=== PATIENT | male | born 1970 | race Caucasian/White ===

== ENCOUNTER 2022-11-30 13:38 | Emergency (ER) | payer OTHER ==
[~2022-11-30] VITALS: Ht 182.9 cm; Wt 62.6 kg
[2022-11-30] MEDS ORDERED: ADVAIR HFA 230-12 GM INH (13:52)
[2022-11-30] MEDS ORDERED: ADVIL200 MG PO (13:52)
[2022-11-30] MEDS ORDERED: VITAMIN D250 MC1 PO (13:53)
[2022-11-30] MEDS ORDERED: VITAMIN C100 MG PO (13:53)
--- NOTE | 2022-11-30 19:57 | EKG ---
[facility] [address] [facility] [place] [address] Signed Sinus tachycardia Otherwise normal ECG No previous ECGs available Confirmed by Deanna Batista MD () on 11/30/2022 7:57:07 PM Electronically Signed By: DEANNA BATISTA MD 11/30/221956 PATIENT NAME: JEAN PIERREYAMINI Linda Electrocardiogram DATE OF : 74 PHYSICIAN: DEANNA BATISTA MD REPORT #: [id number] REPORT IS CONFIDENTIAL AND NOT TO BE RELEASED WITHOUT AUTHORIZATION
--- NOTE | 2022-11-30 21:00 | OR ---
[facility] [address] [place], [place] [address] Signed DATE OF OPERATION: 11/30/2022 SURGEON: Jerson Martinez MD PREOPERATIVE DIAGNOSES: 1. Bilateral pneumothoraces. 2. Chronic obstructive pulmonary disease. 3. Pneumonia. POSTOPERATIVE DIAGNOSES: 1. Bilateral pneumothoraces. 2. Chronic obstructive pulmonary disease. 3. Pneumonia. PROCEDURE: Placement bilateral 28-[place]er chest tubes. FINDINGS: Roge had improvement of both pneumothoraces with ongoing moderate air leaks with good respiratory excursion. INDICATIONS: Roge is a 52-year-old gentleman, whose dad happened to be a general surgeon. His dad has from [facility]. His mom is a retired nurse. His sister happens to be an urologist here in our community. 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 He smoked for about 10 years a pack a day. He quit when he was 32. 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 Unfortunately, he developed COPD and has gotten progressively worse. He is up to 3 L nasal cannula 04/02. He can walk about 50 feet on a good day. He has to sleep prone with his arms and elbows underneath his chest. His mom and sister went down to [place] to pick him up and drive him all the way back to [place]. His sister noticed that he had some coughing and was retracting and had moderate increased work of breathing. He seemed to tolerate the drive here. Once here, she brought him to our local emergency room for evaluation. In the emergency room, his lungs are generally clear to auscultation bilaterally, but he clearly has increased work of breathing and I would say moderate. His white count is elevated at 35,000 and the lactic acid was normal at 1.1. The chest CT shows the bilateral pneumothorax with hyperinflated lungs and flattening of the hemidiaphragms and ammonia. We are a 25-bed critical access hospital and our hospitalist felt he needs a higher level of care to include a kitchen manager and probably a CT surgeon. However, I was asked to see him here in the emergency room as a general surgeon on-call for placement of the chest tubes. I met with Electronically Signed By: JERSON MARTINEZ MD 11/30/[address] [facility] PATIENT NAME: ROGE GREENFIELD OPERATIVE REPORT DATE OF : 74 REPORT #: [id number] PHYSICIAN: JERSON MARTINEZ MD PCP: ROB LINN DO REPORT IS CONFIDENTIAL AND NOT TO BE RELEASED WITHOUT AUTHORIZATION [facility] [address] [place], [place] [address] Signed Roge, his mom and sister and we reviewed the above findings in detail. As they were showing our chest tubes, I explained to him the procedure in detail. There is some risk including, but not limited to bleeding, infection, scarring, change in contour of the skin as well as other unforeseen comorbidities. He had expressed understanding and wished to proceed. DESCRIPTION OF PROCEDURE: Roge was kept supine semi-recumbent in his ER bed. His entire left chest wall and axilla and arm were prepped and draped in the usual sterile fashion. We injected local anesthetic in his chest wall laterally two ribs below his left nipple. We then went to the intercostal space just lateral to the left nipple. We injected that with local anesthetic. We made an oblique incision and traveled up two ribs and end up over the rib with our Pean clamp and into his chest without difficulty. He actually tolerated that quite well. Of course, he had the expected castle of air. The 28-[place] chest tube in placed and hooked up to our atrium. Of course, he has good respiratory excursion with an ongoing moderate air leak. The connection between the chest tube and the atrium was secured with 3 inch wide standard silk tape. An 0 silk suture was then used in a [id number] fashion to close the skin incision and hold the chest tube in place. Dry gauze and tape was applied around the insertion site. The chest x-ray was then performed and he has marked improvement in his pneumothorax. Overall, his work of breathing was a little less. After this we allowed him to go back into the supine semi-recumbent position and we prepped and draped the right side in the same fashion. On this occasion, we went one rib below the right nipple areolar complex for insertion of the chest tube. The chest wall had been injected local anesthetic including the intercostal space. An oblique incision was made with a knife and carried up over the ribs with the Pean clamp. Again, we had a nice castle of air and he tolerated the procedure actually quite well. A 28-[place]er chest tube was inserted and again connected to separate atrium and again he has a moderate air leak with good respiratory excursion. Three inch wide silk tape was used to secure the connection between the chest tube and the atrium. We used dry gauze and 3 inch wide tape then to secure the dressing over the chest tube at the insertion site on his chest wall. Repeat chest x-ray then showed again improvement in the right pneumothorax, but still some persistence there at the apex. Nevertheless, his work of breathing is better, although he does have fairly advanced COPD. In the meantime, our ER physician is working to find him a higher level of care. Jerson Martinez MD Electronically Signed By: JERSON MARTINEZ MD 11/30/[address] [facility] PATIENT NAME: ORGE GREENFIELD OPERATIVE REPORT DATE OF : 74 REPORT #: [id number] PHYSICIAN: JERSON MARTINEZ MD PCP: ROB LINN DO REPORT IS CONFIDENTIAL AND NOT TO BE RELEASED WITHOUT AUTHORIZATION [address] [address] Signed ALB/MODL /[id number] cc: MD Rob Ravi DO Copies: JERSON MARTINEZ MD, ARIAN DO ~ Electronically Signed By: JERSON MARTINEZ MD 11/30/22 2100 PATIENT NAME: ROGE GREENFIELD OPERATIVE REPORT DATE OF : 74 REPORT #: [id number] PHYSICIAN: JERSON MARTINEZ MD PCP: ROB LINN DO REPORT IS CONFIDENTIAL AND NOT TO BE RELEASED WITHOUT AUTHORIZATION
--- NOTE | 2022-11-30 21:00 | CONS ---
[facility] [address] [place], [place] [address] Signed DATE OF CONSULTATION: 11/30/2022 CHIEF COMPLAINT: Shortness of breath. 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 He also smoked for about 10 years. He quit when he is about 32 years old. Unfortunately, he has developed COPD and he is now on oxygen about 3 L nasal cannula 04/02. For the last few years, he had to sleep supine with his forearms and elbows underneath him so that he can breathe. His sister happens to be a urologist. She works in our community. His mom is a retired nurse and his dad is a retired general surgeon. His dad has from [facility]. His sister and mom went to [place] to pick him up in the car and they brought him back here to [place], [place] because of his worsening COPD and shortness of breath. He said he can probably walk 50 feet with his oxygen on a good day. He has had increased work of breathing and certainly was retracting some as he was in [place] and came out here. His sister and his mother brought him here to our local emergency room for evaluation. His white count is elevated at 35,000 and his lactic acid is 1.1. Albumin is low at 2.9. He is really I am sure has trouble eating in his current situation. He had a couple of blood cultures drawn. His lungs are generally clear to auscultation bilaterally, but he certainly has increased work of breathing and I would say moderate. He is quite thin as many COPD patients are. He had a CT scan of his chest and he has bilateral moderate-sized pneumothoraces with hyperinflated lungs and some pneumonia. I have been asked to see him here in the emergency room as a general surgeon on-call. I just finished operating him down here about 3 o'clock. His mom and his sister are with him here in the ER. PAST MEDICAL HISTORY: COPD on 3 L/minute nasal cannula. PAST SURGICAL HISTORY: None. SOCIAL HISTORY: He smoked about a pack a day of cigarettes from around age 22 to 32. He does not drink. No IV drug abuse. 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 He is single and has no children. His sister is urologist, Dr. Daria Greenfield at [phone] and his mother is a retired nurse and she is with him today. He is establishing with Dr. Linn here in [place], [place]. FAMILY HISTORY: Mom had colon cancer at age 70 and she is doing well after the surgery. Dad had renal cell carcinoma as well as ALS and from the [facility]. Electronically Signed By: JERSON MARTINEZ MD 11/30/22 [facility] PATIENT NAME: ROGE GREENFIELD CONSULTATION DATE OF : 74 REPORT #: [id number] PHYSICIAN: JERSON MARTINEZ MD PCP: DRAKE LINN DO REPORT IS CONFIDENTIAL AND NOT TO BE RELEASED WITHOUT AUTHORIZATION [address] [address] Signed REVIEW OF SYSTEMS: Roge had 10 systems reviewed and really other than his lung issue, he is a pretty healthy eren, although he does not have a high propensity to visit doctors. He said he has not seen a basket braider in at least 10 years. ALLERGIES: None. MEDICATIONS: 1. Advair. 2. Ibuprofen. 3. Vitamin C. 4. Vitamin D. PHYSICAL EXAMINATION: VITAL SIGNS: His blood pressure is 122/85, heart rate is 122, his respiratory rate is 26, temperature is 98.3, he is 94% on 4 L nasal cannula. He is 6 feet tall at 62 kg with a body mass index of 18. GENERAL: Roge is a 52-year-old gentleman, lying supine semi-recumbent in his ER bed. His mom and sister are in the room. He is thin and he clearly has increased work of breathing, I would say moderate. LUNGS: Generally clear to auscultation bilaterally. HEART: Tachycardic but no murmur. ABDOMEN: Soft and nontender. LABORATORY DATA: His white blood cell count is 35, hemoglobin is 14, neutrophils 86. Electrolytes are unremarkable, though the CO2 is 38. Lactic acid is 1.1. Liver function tests are negative. Albumin is 2.9. Blood cultures x2 have been sent. RADIOGRAPHIC STUDIES: CT scan report and the images were reviewed and he certainly has moderate-sized bilateral pneumothoraces. The left is a little more than the right. He has a subcutaneous emphysema. He has hyperinflated lungs with some flattening of his diaphragms. It looks like he has some pneumonia as well. ASSESSMENT AND PLAN: Roge is a 52-year-old gentleman, who presents with chronic ongoing COPD, but it looks like he has contracted pneumonia coughing and now he has bilateral pneumothoraces. He certainly is in need of bilateral chest tubes. We are 25-bed critical access hospital and he is a little more than what our ICU and our hospitalist can handle. He really is in need of a basket braider and probably a thoracic surgeon in due time. He understands that quite well as well as his family. We have also discussed Electronically Signed By: JERSON MARTINEZ MD 11/30/22 2100 PATIENT NAME: ROGE GREENFIELD CONSULTATION DATE OF : 74 REPORT #: [id number] PHYSICIAN: JERSON MARTINEZ MD PCP: DRAKE LINN DO REPORT IS CONFIDENTIAL AND NOT TO BE RELEASED WITHOUT AUTHORIZATION [facility] [address] [place] [id number] Signed the chest tubes and I actually was unable to show him the chest tubes here in the ER. He understands he will need one on both sides. We will start on one side and go to the other side after we check an x-ray. There is risk to that including, but not limited to bleeding, infection, scarring, change in contour of the skin as well as need for ongoing chest tubes or treatments. He has expressed understanding and would like to proceed. Jerson Martinez MD ALB/MODL /[id number] cc: DO Jerson Espinoza MD Copies: DRAKE LINN ANDREW L MD ~ Electronically Signed By: JERSON MARTINEZ MD 11/30/22 2100 PATIENT NAME: ROGE GREENFIELD CONSULTATION DATE OF : 74 REPORT #: [id number] PHYSICIAN: JERSON MARTINEZ MD PCP: DRAKE LINN DO REPORT IS CONFIDENTIAL AND NOT TO BE RELEASED WITHOUT AUTHORIZATION
[2022-11-30 21:25] VITALS: BP 128/83
== END 2022-11-30 21:51 | disposition short-term general hospital (02) ==
LOC: ED 13:38
DX: J93.9 Pneumothorax, unspecified (principal); J44.9 Chronic obstructive pulmonary disease, unspecified; J18.9 Pneumonia, unspecified organism; Z99.81 Dependence on supplemental oxygen; Z79.899 Other long term (current) drug therapy; Z20.822 Contact with and (suspected) exposure to COVID-19; Z87.891 Personal history of nicotine dependence
CPT/HCPCS: 36415; 71045; 80053; 83605; 83735; 84484; 85025; 87502; 94640; 96365; 96366; 96367; 96375; 99285-25; J0456; J0692; J3370; J7060; U0003